=== PATIENT | male | born 1985 | race Two or more races ===

== ENCOUNTER 2022-03-20 06:26 | Emergency (ER) | payer BC, SELFPAY ==
--- NOTE | ~2022-03-20 | XR_ITS ---
EXAMINATION: XR abdomen/kub 1V DATE: 03/20/2022 07:41 INDICATION: Right flank pain. Nephrolithiasis. TECHNIQUE: A supine view of the abdomen on 2 radiographs was obtained. COMPARISON: None. FINDINGS: Bilateral nephrolithiasis. 4 mm to the upper pole of the left kidney. Additional 2 mm stone at the lo wer pole of the left kidney. There are at least 5 stones seen in the right kidney, the largest 7 mm s tone seen at the renal pelvis at the time of the immediately prior CT is repositioned and is now in a lower pole calyx. The 3 mm obstructing stone at the right ureterovesicular junction projects slightl y lateral to the coccyx. The additional cluster of stones in the distal right ureter the largest nasim uring 7 mm on the prior CT can be seen along the lateral margin of the sacroiliac the level of S4. No dilated loops of gas-filled bowel to suggest obstruction. Lung bases are clear. Heart size is normal .. IMPRESSION: 1. Bilateral nephrolithiasis including the previously noted 3 mm obstructing stone at the right urete rovesicular junction and cluster of additional stones in the distal right ureter. Reviewed, dictated and finalized at location A. IMPRESSION: 1. Bilateral nephrolithiasis including the previously noted [address] one at the right ureterovesicular junction and cluster of additional stones in the distal right ureter.
--- NOTE | ~2022-03-20 | CT_ITS ---
EXAMINATION: CT abdomen pelvis wo con DATE: 03/20/2022 07:29 INDICATION: Right flank pain TECHNIQUE: Computed tomography (CT) of the abdomen and pelvis was performed without intravenous contr ast. Automated exposure control and iterative reconstruction technique were employed. The dose-length product was 642.58 mGy-cm. COMPARISON: None FINDINGS: Mild discoid atelectasis at the lingula. Heart size is normal. No pericardial or pleural effusion. Di ffuse hepatic steatosis. Gallbladder, spleen, pancreas and bilateral adrenal glands are normal. Bilat eral nephrolithiasis with 7 stones in the right kidney the largest measuring 7 x 3 mm and 3 stones in the left kidney the largest measuring 4 mm. There is a 3 mm obstructing stone at the right ureteral vesicular junction with mild right hydronephrosis and moderate hydroureter. There are 3 stones measur ing 7 mm, 3 mm and 2 mm layering in the dependent aspect of the dilated distal right ureter proximall y 5 cm from the ureterovesicular junction at which point the ureter measures 1.3 cm in diameter. No l eft-sided ureteral stones or hydroureteronephrosis. Bladder is decompressed but otherwise unremarkabl e. The appendix is not visualized. No pericecal inflammatory change to suggest acute appendicitis. No bowel obstruction. No free intraperitoneal gas or fluid. No pathologically enlarged abdominal or pel alvin lymphadenopathy. IMPRESSION: 1. Bilateral nephrolithiasis with obstructing 3 nausea with right ureterovesicular junction and mild to moderate right hydroureteronephrosis. 2. Diffuse hepatic steatosis. Reviewed, dictated and finalized at location A. IMPRESSION: 1. Bilateral nephrolithiasis with obstructing 3 nausea with right ureterovesicu lar junction and mild to moderate right hydroureteronephrosis. 2. Diffuse hepatic steatosis.
[2022-03-20 06:39] VITALS: BP 154/100; PULSE 83; RESP 16; TEMP 37; O2SAT 99
[2022-03-20] MEDS: ONDANSETRON INJ 4 MG/2 ML VIAL IV PUSH (07:19)
[2022-03-20] MEDS: SODIUM CHLORIDE 0.9% IV 1,000 ML 999 ML IV CONT (07:19)
[2022-03-20] MEDS: KETOROLAC 30 MG/ML VIAL (*BKC) IV PUSH (07:19)
[2022-03-20 07:25] LABS: Appearance Urine Clear (Clear); Bilirubin Urine 1+ (Negative); Blood Urine 2+ (Negative); Color Urine Yellow (Yellow); Glucose Urine UA Negative (Negative); Ketones Urine Negative (Negative); Leukocyte Esterase Ur Negative LEU/UL (Negative); Nitrate Urine Negative (Negative); Protein Urine 2+ mg/dL (Negative); Specific Grav Ur >= 1.030 (1.001-1.035); Urobilinogen Urine 0.2 mg/dL (<2.0)
--- NOTE | 2022-03-20 07:27 | ED.GENADULT ---
HPI - General Adult General Chief complaint: Back Pain/Injury Stated complaint: right flank/groin pain Time Seen by Provider: 03/20/22 07:01 Source: RN notes reviewed History of Present Illness HPI narrative: Patient presents emergency room from home for right flank pain. Patient states symptoms have been intermittent for the last month but worsened last night pain is located in the right flank and radiates in the right groin described as sharp and stabbing. Associate with several episodes of nausea and vomiting. States he did try taking Tylenol for the pain at home with no relief. States he does have a history of previous kidney stones and this does feel similar to prior. Denies any fevers or chills chest pain shortness of breath or any other symptoms Related Data Allergies Allergy/AdvReac Type Severity Reaction Status Date / Time No Known Allergies Allergy Verified 03/20/22 07:18 Review of Systems Review of Systems: Gen.: Denies fevers or chills ENT: Denies congestion Respiratory: Denies shortness of breath or cough CV: Denies chest pain or palpitations GI: See HPI denies burning, urgency, frequency or hematuria Musculoskeletal: Denies back pain or muscle pain Neuro: Denies numbness, tingling, weakness or focal weakness Skin: Denies rash Except as documented, all other systems reviewed and negative [facility] Past Medical History Medical History (Updated 03/20/22 @ 09:27 by Christopher Medrano DO) Kidney stones Social History Social History (Updated 03/20/22 @ 07:28 by Christopher Medrano DO) Smoking status: Never smoker Exam Narrative: APPEARANCE: No acute distress, nontoxic, resting in bed HEENT: Normocephalic, atraumatic, OMM RESPIRATORY: No respiratory distress, clear to auscultation bilaterally with no rhonchi wheezing or rales CARDIOVASCULAR: RRR s murmur ABDOMINAL: Soft nondistended tender palpation right upper quadrant right lower quadrant no tenderness left upper quadrant left lower quadrant no rebound or guarding, right flank tenderness MUSCULOSKELETAl: Moves all extremities. No clubbing, cyanosis or edema. NEURO: Awake and alert. Following commands, speech normal, no focal deficits SKIN:: Warm, dry. Normal Color PSYCHIATRIC: Normal affect/mood Course Course Emergency Course: Discussed Dr. Spangler presentation work-up at this time he feels of pain is controlled patient may be discharged with follow-up as an outpatient to take down the patient's information to call the patient States pain is improved at this time Discussed with patient results of workup and diagnosis. Discussed need for follow-up with primary care, proper use of medication, and reasons to return to the emergency department. Patient understands and agrees to current treatment plan Vital Signs Vital signs: Vital Signs Temperature 98.6 F 03/20/22 06:39 Pulse Rate 83 03/20/22 06:39 Respiratory Rate 16 03/20/22 06:39 Blood Pressure 154/100 H 03/20/22 06:39 Pulse Oximetry 99 03/20/22 06:39 Oxygen Delivery Room Air 03/20/22 06:39 Temperature 98.6 F 03/20/22 06:39 Pulse Rate 74 03/20/22 08:45 Respiratory Rate 18 03/20/22 08:45 Blood Pressure 127/90 03/20/22 08:45 Pulse Oximetry 97 03/20/22 08:45 Oxygen Delivery Room Air 03/20/22 06:39 Medical Decision Making Vital Signs Vital Signs: Vital Signs Temperature 98.6 F 03/20/22 06:39 Pulse Rate 83 03/20/22 06:39 Respiratory Rate 16 03/20/22 06:39 Blood Pressure 154/100 H 03/20/22 06:39 Pulse Oximetry 99 03/20/22 06:39 Oxygen Delivery Room Air 03/20/22 06:39 Temperature 98.6 F 03/20/22 06:39 Pulse Rate 74 03/20/22 08:45 Respiratory Rate 18 03/20/22 08:45 Blood Pressure 127/90 03/20/22 08:45 Pulse Oximetry 97 03/20/22 08:45 Oxygen Delivery Room Air 03/20/22 06:39 Lab Data Result diagrams: 03/20/22 07:17 03/20/22 07:17 Labs: Lab Results 03/20/22 03/20/22
[2022-03-20 07:29] LABS: Basophils Absolute Auto 0.1 K/mm3 (0.0-0.1); Basophils Percent Auto 0.5 % (0.2-1.2); Eosinophils Absolute Auto 0.3 K/mm3 (0-0.3); Eosinophils Percent Auto 2.2 % (0-4.4); Hematocrit 46.7 % (42.0-52.0); Immature Granulocyte Absolute 0.06 K/mm3 (0.00-0.031); Immature Granulocyte Percent A 0.5 % (0-0.5); Lymphocytes Absolute Auto 1.82 K/mm3 (0.9-3.2); Lymphocytes Percent Auto 15.7 % (18.3-44.2); Mean Corpuscular HGB Conc 34.3 g/dl (32-36); Mean Corpuscular Hemoglobin 27.9 pg (26-34); Mean Corpuscular Volume 81.4 fl (80-100); Mean Platelet Volume 9.4 fl (7.4-10.4); Monocytes Absolute Auto 0.4 K/mm3 (0.1-0.6); Monocytes Percent Auto 3.6 % (2.6-8.5); Neutrophils Percent Auto 77.5 % (45.5-73.1); Platelet Count Result 259 k/mm3 (150-375); Red Blood Count 5.74 M/mm3 (4.6-6.20); White Blood Count 11.6 K/mm3 (4.5-10.0)
[2022-03-20 07:30] LABS: Bacteria Urine Trace /hpf; Mucus Urine Heavy /lpf; Squamous Epithelial Cell Urine Occasional /hpf (Few)
[2022-03-20 07:43] LABS: Alanine Aminotransferase 42 U/L (6-50); Albumin Level 4.5 g/dL (3.5-5.1); Alkaline Phosphatase 90 U/L (38-126); Anion Gap 13 mmol/L (8-16); Aspartate Amino Transferase 33 U/L (17-59); Bilirubin,Total 0.8 mg/dL (0.2-1.3); Blood Urea Nitrogen 14 mg/dL (9-20); Calcium 9.5 mg/dL (8.4-10.2); Carbon Dioxide 23 mmol/L (22-30); Chloride 107 mmol/L (98-107); Estimated Glomerular Filt Rate > 60; Glucose 123 mg/dL (65-110); Sodium 143 mmol/L (137-145)
[2022-03-20 08:29] LABS: Add Urine Microscopic? YES
[2022-03-20] MEDS: MORPHINE SULFATE (*CRX) 4 MG/ML INJ IV PUSH (08:42)
[2022-03-20 08:45] VITALS: BP 127/90; PULSE 74; RESP 18; O2SAT 97
[2022-03-20] MEDS: TAMSULOSIN HCL 0.4 MG CAPSULE PO (09:37)
== END 2022-03-20 09:52 | disposition home or self-care (01) ==
PROVIDERS: Emergency Medicine; Emergency Provider Emergency Medicine
DX: N13.2 Hydronephrosis with renal and ureteral calculous obstruction (principal); Z87.442 Personal history of urinary calculi; K76.0 Fatty (change of) liver, not elsewhere classified
CPT/HCPCS: 36415; 74018; 74176; 80053; 81001; 85025; 96361; 96374; 96375; 99284; A9270; J1885; J2270; J2405; J7030

== ENCOUNTER 2022-04-28 08:02 | Outpatient (CLI) | payer BC, SELFPAY ==
[2022-04-28 08:42] LABS: Prothrombin Time 12.9 Seconds (11.1-14.7)
[2022-04-28 08:43] LABS: Partial Thromboplastin Time 26.9 SECONDS (22.3-36.8)
== END 2022-04-28 08:03 | disposition home or self-care (01) ==
PROVIDERS: Visit Provider Urology
DX: Z01.812 Encounter for preprocedural laboratory examination (principal); N20.0 Calculus of kidney
CPT/HCPCS: 36415; 85610; 85730; 87086

== ENCOUNTER 2022-05-05 01:11 | Day surgery (SDC) | payer BC, SELFPAY ==
[2022-04-26 14:07] VITALS: BMI 28.5
--- NOTE | 2022-04-26 14:17 | PC.NURSE ---
Report to the Outpatient Waiting Room, entrance under the green pavilion located off [facility], at time 6:00 on date 05/05/22. OR Time: 7:30. - You and your visitor will be asked to self-screen and do not enter if you have any COVID symptoms. - Only one visitor and NO children visitors are allowed at this time. - The patient visitor is requested to leave or wait in car when not with patient due to restrictions. - A mask is required within the hospital. Patients may have clear liquids (water, carbonated beverages, clear teas, apple juice) until 3 hours prior to surgery (4:30) with a maximum of 20 ounces. - No food from midnight until time of surgery Take the following medications with a SIP of water the morning of surgery: N/A Medications to discontinue per physician: N/A Date to take last dose: N/A Please no make-up, nail pitcairn islander, hairspray, perfume, deodorant, or body powder the day of surgery. No jewelry (including any body piercings) or valuables the day of surgery, leave them at home. Please take a shower or bath the night before, or the morning of, surgery with an antibacterial soap. Wear comfortable, loose fitting clothing. - Jewelry must be removed prior to entering the operating room. Rings and piercings that are not removed may be cut off. - The hospital will not accept responsibility for valuables. - Please leave all valuables, including medications, at home the day of surgery. If you are going home after surgery, a licensed pizza driver must drive you home. - NO public transportation without another adult. - We recommend that an adult stay with you for 24 hours following discharge. - We also recommend that you do not drive, make important decision, drink alcoholic beverages, or take any drugs that were not prescribed by your health care provider for at least 24 hours after your discharge time. Follow any additional instructions given to you from your surgeon. If you or anyone in your household have experienced Covid symptoms in the past week, please notify your surgeon or the nurse liaison at the phone number below for possible testing. Telephone instructions given to PT - POONAM CUELLAR and asked if any additional questions and then verbalized understanding. Patient advised to call surgeon office or pre surgery nurse liaison [phone] if any additional questions.
--- NOTE | 2022-05-04 11:38 | P.HP_ITS ---
History of Present Illness History of Present Illness Consent: Risks, benefits, and alternatives have been discussed and questions answered. Patient agrees to proceed with procedure. Chief complaint: Right Kidney Stones Narrative: Aydin Mayes is a 36 year old male who has undergone endoscopic stone extraction once in the remote past was recently in the ER with a painful obstructing 3 mm right distal ureteral calculus. This was passed spontaneously but imaging also revealed bilateral nonobstructing renal stones. He now elects to present for right ESWL. He is aware of the risk of this procedure including, but not limited to, adverse cardiopulmonary events, persistent stone fragments that may require additional intervention, perinephric hematoma and hematuria. Review of Systems Cardiovascular: Cardiovascular: Denies chest pain, Denies lightheadedness, Denies palpitations and Denies dyspnea Respiratory: Respiratory: Denies dyspnea Gastrointestinal: Gastrointestinal: Denies diarrhea, Denies nausea and Denies vomiting Genitourinary: Genitourinary: Denies hematuria and Denies dysuria Endocrine: Endocrine: Denies palpitations [facility] Past Medical History Medical History (Updated 03/21/22 @ 00:00 by Renea Estrada) Kidney stones Social History Social History (Updated 03/20/22 @ 07:28 by Christopher Medrano DO) Smoking status: Never smoker Alcohol intake: current Alcohol use details: 2/MONTH Substance use: never Substance use type: does not use Spiritual care concerns: No Meds Home Medications and Allergies Home Medications Medication Instructions Recorded Confirmed Type No Home Medications 04/26/22 04/26/22 History Allergies Allergy/AdvReac Type Severity Reaction Status Date / Time No Known Allergies Allergy Verified 04/26/22 14:05 Exam Const: General: no acute distress Resp: Effort & Inspection: normal respiratory effort GI: Inspection: non-distended GI Palp: No abdominal tenderness and No Guarding due to palpation present (GI) Auscultation: normal bowel sounds Assessment and Plan Assessment and plan (1) Kidney stones: Code(s): N20.0 - Calculus of kidney Status: Acute Assessment and Plan: * Right ESWL
[2022-05-05] VITALS (11 sets, daily range): BP systolic 99–139; BP diastolic 58–98; PULSE 70–94; RESP 12–16; TEMP 36–36.6; O2SAT 94–100
--- NOTE | ~2022-05-05 | XR_ITS ---
EXAMINATION: XR abdomen/kub 1V DATE: 05/05/2022 06:26 INDICATION: Kidney stone. TECHNIQUE: A supine view of the abdomen on 2 radiographs was obtained. COMPARISON: CT abdomen and pelvis 03/20/2022 FINDINGS: There are no dilated loops of bowel. There are at least 5 stones in right kidney measuring up to 10 mm. There are 2 stones in left kidney measuring up to 4 mm. There are 3 stones in distal rig ht ureter measuring up to 7 mm. IMPRESSION: 1. Stones in the kidneys and distal right ureter. Reviewed, dictated and finalized at location A.
[2022-05-05] MEDS: LACTATED RINGERS 1,000 ML 30 ML IV CONT ×2 (06:46→08:39)
--- NOTE | 2022-05-05 06:59 | WPDANESEPPF ---
Anes - Initial Pre Proc Eval Procedure: Operation Date: 05/05/22 07:30 Proposed Procedures p Right Extracorporeal Shock Wave Lithotripsy - Ricardo Silva MD Date/Time: 05/05/22 06:59 Surgeon: Ricardo Silva MD Pre Op Diagnosis: Right Kidney Stones Patient Data Age: 36 Gender: M Height: 1.71 m Weight: 85.2 kg Last Vital Signs Temp 36.6 C 05/05/22 06:35 Pulse 87 05/05/22 06:35 Resp 16 05/05/22 06:35 BP 118/81 05/05/22 06:35 Pulse Ox 99 05/05/22 06:35 O2 Del Method Room Air 05/05/22 06:35 Allergies Allergy/AdvReac Type Severity Reaction Status Date / Time No Known Allergies Allergy Verified 05/05/22 06:30 Home Medications Medication Instructions Recorded Confirmed Type No Home Medications 04/26/22 05/05/22 History Patient hx anesthesia problems: none Family hx anesthesia problems: none Results Review: All pre-operative results and documents have been reviewed as part of the pre-operative evaluation. [facility] Past Medical History Medical History (Updated 05/05/22 @ 07:00 by Graeme Rodas MD) Kidney stones Overweight Surgical History Surgical History (Updated 05/05/22 @ 07:00 by Graeme Rodas MD) History of appendectomy Hx of cystoscopy Social History Social History Smoking status: Never smoker Alcohol intake: current Alcohol use details: 2/MONTH Substance use: never Substance use type: does not use Living arrangements: with family Spiritual care concerns: No Anes - Eval Final PreProcedure Day of Procedure 05/05/22 06:59 Patient weight: overweight Heart: regular rate and rhythm Lungs: clear to auscultation Airway: Mallampati scale class II and special considerations poor opening Neurological: alert and oriented Last oral intake: >/= 8 hours ASA classification: II Emergent: no Anesthesia type and monitoring: general LMA and standard monitoring Results Review: All pre-operative results and documents have been reviewed as part of the pre-operative evaluation. Informed Consent: The patient's anesthetic plan and its attendant risks and benefits were discussed with the patient/family/POA. Questions were solicited and answers provided to the satisfaction of the patient/family/POA.
--- NOTE | 2022-05-05 07:00 | WPDHPUPDATE1 ---
History and Physical Update Update Date/Time: 05/05/22 07:00 History and Physical has been reviewed, including an updated exam of the patient. There are NO changes in the patient's condition. Risks, benefits, and alternatives have been discussed and questions answered. Patient agrees to proceed with procedure.
--- NOTE | 2022-05-05 07:03 | WPDHPUPDATE1 ---
History and Physical Update Update Date/Time: 05/05/22 07:03 History and Physical has been reviewed, including an updated exam of the patient. There are NO changes in the patient's condition. Risks, benefits, and alternatives have been discussed and questions answered. Patient agrees to proceed with procedure.
[2022-05-05] MEDS: ceFAZolin 2 GM/D5W 50 ML 2 GM/50 ML BAG IVPB (07:22)
--- NOTE | 2022-05-05 07:56 | W.PM.PROC2 ---
Procedure Note - Detailed Date of Procedure 05/05/22 Pre-op Diagnosis Right Kidney and Right Ureteral stones Post-op Diagnosis Same Procedure Performed Right ureteral and right renal stones Surgeon Ricardo Silva MD Description of Procedure On the morning of lithotripsy preoperative imaging demonstrated persistence of 3 contiguous stones in his distal ureter in addition to bilateral renal stones. After discussion patient will be opted to treat both the ureteral and renal stones. We 1st treated the right distal ureteral stones (probably 3 contiguous stones) with a total of 3000 shocks at a power setting of 6. Thereafter we treated largest stone in the right lower pole calyx with 2500 shocks at a power setting of 4. The patient tolerated this procedure well was taken recovery room good condition. Drains No Packing No Pathology None sent Complications No immediate complications Disposition PACU
[2022-05-05] MEDS: KETOROLAC 15 MG/ML VIAL (*BKC) IV PUSH (08:28)
[2022-05-05] MEDS: fentaNYL CITRATE INJ (*CRX) 100 MCG/2 ML VIAL 25 MCG IV PUSH ×6 (09:36→10:42)
[2022-05-05] MEDS: oxyCODONE HCL (*CRX) 5 MG TAB IR PO (10:15)
[2022-05-05] MEDS: ONDANSETRON INJ 4 MG/2 ML VIAL IV PUSH (10:34)
== END 2022-05-05 11:21 | disposition home or self-care (01) ==
PROVIDERS: Visit Provider Urology
PROC: (CPT 50590; principal; 2022-05-05 07:30)
DX: N20.2 Calculus of kidney with calculus of ureter (principal)
CPT/HCPCS: 50590; 36415; 74018; 85610; 85730; 87086; A9270; J0690; J1100; J1885; J2250; J2405; J2704; J3010; J7120

== ENCOUNTER 2022-05-12 11:16 | Outpatient (CLI) | payer BC, SELFPAY ==
--- NOTE | ~2022-05-12 | XR_ITS ---
EXAMINATION: XR abdomen/kub 1V INDICATION: Calculus of the kidney TECHNIQUE: Supine views of the abdomen were obtained on 2 radiographs. COMPARISON: 05/05/2022 FINDINGS: Previously described right kidney stones are no longer evident, consistent with interval li thotripsy. There is steinstrasse of the distal right ureter. Multiple stable left kidney stones are p resent which measure up to 4 mm. The bowel gas pattern is normal. IMPRESSION: 1. Steinstrasse of the distal right ureter. Reviewed, dictated and finalized at location B.
== END 2022-05-12 11:17 | disposition home or self-care (01) ==
PROVIDERS: Visit Provider Urology
DX: N20.1 Calculus of ureter (principal)
CPT/HCPCS: 74018

== ENCOUNTER 2022-05-18 17:39 | Outpatient (CLI) | payer BC, SELFPAY ==
--- NOTE | ~2022-05-18 | XR_ITS ---
XR abdomen/kub 1V 05/18/2022 18:02 Indication: Right ureteral stones. Procedure: KUB Comparison: 05/12/2022 Findings: Decreased burden of stones in the distal aspect of the right ureter. There are sclerotic le diane in the proximal aspect of the right femur which is unchanged, likely benign bone island. Bowel g as pattern nonobstructive. No acute osseous abnormality. Impression: 1: Decreased urine burden in the distal aspect of the right ureter compared with prior examination. Reviewed, dictated and finalized at location A. Impression: 1: Decreased urine burden in the distal aspect of the right ureter compared wit h prior examination.
== END 2022-05-18 17:40 | disposition home or self-care (01) ==
LOC: ANHIMG 17:46
PROVIDERS: Visit Provider Urology
DX: N20.1 Calculus of ureter (principal)
CPT/HCPCS: 74018